=== PATIENT | female | born 1935 | race Caucasian/White ===

== ENCOUNTER 2022-09-06 13:38 | Inpatient (IN) | payer MEDICARE, MEDICAID, SELFPAY ==
[2022-09-06 13:39] VITALS: BP 144/94; PULSE 67; RESP 18; TEMP 36.6; O2SAT 93
[2022-09-06 13:51] VITALS: BMI 28.5
--- NOTE | 2022-09-06 14:01 | EX.ED.DYSGE1 ---
HPI History of Present Illness Chief Complaint: GI Bleed Informant: patient and family Onset/Context/Timing Onset: Today Narrative Narrative: Patient presents for evaluation of possible GI bleed. She reportedly had a very dark stool this morning. Last BM was 2 days ago and normal at that time per her report. She was recently seen at an emergency room in [place] with left groin pain. X-rays were unremarkable. She was placed on prednisone and Voltaren. She also takes aspirin daily. She states since arriving in the emergency room she started to get some slight periumbilical pain. She is unsure of her last colonoscopy but states its been more than 3 years. She states that she has never had an abnormal colonoscopy. [facility] Medical History Dyslipidemia Hypertension Hypothyroidism Home Medications Lovastatin [Mevacor] 40 mg PO DAILY 02/18/13 [History Last Taken 02/11/13] albuterol sulfate 90 mcg/actuation aerosol inhaler (Ventolin HFA) 1 - 2 puff inhalation Q4H PRN PRN Wheezing 02/18/13 [History Last Taken Unknown] amlodipine 2.5 mg tablet 5 mg PO DAILY 02/18/13 [History Last Taken 02/18/13] levothyroxine 25 mcg tablet (Levoxyl) 50 mcg PO DAILY 02/18/13 [History Last Taken 02/17/13 08:00] metoprolol tartrate 25 mg tablet 25 mg PO BID 02/18/13 [History Last Taken 02/17/13] aspirin 81 mg chewable tablet 1 tab PO DAILY 07/27/16 [History Last Taken Unknown] calcium carbonate 500 mg-vitamin D3 10 mcg (400 unit) chewable tablet (Calcium 500 + D) 1 tab PO DAILY 07/27/16 [History Last Taken Unknown] meclizine 12.5 mg tablet 12.5 mg PO 4X/DAY PRN PRN Dizziness 07/27/16 [History Last Taken Unknown] hydrocodone-acetaminophen 5-325mg 5mg-325mg 1 - 2 tab PO Q4H PRN PRN Pain ##14 07/28/16 [Rx Last Taken Unknown] Allergy/AdvReac Type Severity Reaction Status Date / Time Penicillins Allergy Hives Verified 09/06/22 13:42 Sulfa (Sulfonamide Allergy Hives Verified 09/06/22 13:42 Antibiotics) atorvastatin calcium AdvReac Unknown Verified 09/06/22 13:42 [From Lipitor] Social History Smoking Status: Never smoker ROS ROS ED Constitutional Constitutional ED: Denies chills or fever(s) Eyes Eyes: Denies change in vision ENT ENT ED: Denies rhinorrhea or sore throat Cardiovascular Cardiovascular: Denies chest pain or palpitations Respiratory/Chest Respiratory/Chest: Denies cough or dyspnea Gastrointestinal Gastrointestinal: Reports abdominal pain and melena; Denies diarrhea, nausea or vomiting Genitourinary Genitourinary ED: Denies dysuria Musculoskeletal Musculoskeletal: Denies back pain or extremity pain Integumentary Denies Abrasions or rash Neurologic Neurologic: Denies headache(s) or weakness Psychiatric Psychiatric: Denies anxiety or depression Allergic/Immunologic Allergic/Immunologic ED: Denies lip swelling or urticaria EXAM Physical Exam Const Vital Signs: 09/06/22 13:39 Temperature 97.8 F Temperature Source Temporal Pulse Rate 67 Respiratory Rate 18 Blood Pressure 144/94 H Blood Pressure Mean 110 Pulse Ox 93 Oxygen Delivery Method Room Air Positive well nourished and well developed General Appearance ED: well developed HEENT Reports normocephalic and head/scalp atraumatic Eyes PERRL and EOMs intact bilaterally Neck supple Chest Wall inspection of chest normal and palpation of chest normal Resp normal respiratory effort and clear to auscultation bilaterally Cardio regular rate and regular rhythm GI non-tender Auscultation: hypoactive bowel sounds Palpation: soft Extremity normal to inspection Neuro oriented x3 and no sensory deficits noted Sensorium / Orientation: alert Motor Exam: strength 5/5 throughout Psych mental status grossly normal Skin no rashes or lesions noted Discharge Plan Triage Chief Complaint: GI Bleed ED Provider: Annetta Barnhart Dx/Rx/DC Orders Prescriptions: No Action levothyroxine [Levoxyl] 25 MCG tablet 50 mcg PO DAILY metoprolol tartrate 25 MG tablet 25 mg PO BID Label Comments: 2 TABLETS WITH BREAKFAST, 1 TAB QHS amlodipine 2.5 MG tablet 5 mg PO DAILY albuterol sulfate [Ventolin HFA] 1 INHALER inhaler 1 - 2 puff inhalation Q4H PRN PRN (Reason: Wheezing) Lovastatin [Mevacor] 40 MG tablet 40 mg PO DAILY meclizine 12.5 MG tablet 12.5 mg PO 4X/DAY PRN PRN (Reason: Dizziness) aspirin 81 MG tablet,chewable 1 tab PO DAILY calcium carbonate-vitamin D3 [Calcium 500 + D] 1 EACH tablet,chewable 1 tab PO DAILY hydrocodone-acetaminophen 1 TABLET tablet 1 - 2 tab PO Q4H PRN PRN (Reason: Pain) Qty: 14 0RF Primary Care Provider: Fco Woods Referrals: Fco Woods MD [Primary Care Provider] -
[2022-09-06 14:21] LABS: Absolute Lymphocyte Count 2.13 X10^3/uL (0.83-4.51); Absolute Neutrophil Count 14.4 X10^3/uL (2.0-7.7); Basophil# 0.07 X10^3/uL; Basophil% 0.3 % (0-1); Eosinophil# 0.42 X10^3/uL; Eosinophils% 1.7 % (0-5); Hemoglobin 11.8 g/dL (12.0-15.0); Lymphocyte # 2.13 X10^3/ul (0.83-4.51); Lymphocyte % 8.7 % (19-41); Mean Corp Hgb Conc 31.9 g/dL (32-36); Mean Corpuscular Hgb 30.3 pg (27.0-32.0); Mean Corpuscular Volume 94.9 fL (81-99); Mean Platelet Vol. 12.2 fl (6.2-12.0); Monocyte# 6.94 X10^3/uL; Monocyte% 28.5 % (0-10); NRBC Flagged by Analyzer 0 % (0-5); Neutrophil # 14.42 X10^3/uL (2.7-7.7); Neutrophil % 59.2 % (47-70); POSITIVE DIFFERENTIAL YES; POSITIVE MORPHOLOGY YES; Platelet Count 217 K/mm3 (150-450); RBC Distribution Width CV 13.2 % (11.6-14.6); White Blood Count 24.4 K/mm3 (4.4-11.0)
[2022-09-06 14:23] LABS: Differential Indicated SCAN CRITERIA MET
[2022-09-06] MEDS: 0.9% Normal Saline 1,000 ML 150 ML IV ×2 (14:25→20:23)
[2022-09-06 14:38] LABS: AST(SGOT) 10 U/L (15-37); Alanine Aminotransfer ALT/SGPT 12 U/L (13-56); Albumin, Serum 3.8 g/dL (3.2-5.0); Alkaline Phosphatase 52 U/L (45-117); Anion Gap 4 (5-15); BUN 23 mg/dL (7-18); BUN/Creat Ratio 25.4 RATIO (10-20); Calcium,Total 9.9 mg/dL (8.5-10.1); Chloride 98 mmol/L (98-107); Creatinine, Serum 0.91 mg/dL (0.55-1.02); EST Glomerular Filtration Rate 62 mL/min (>60); Est Glom Filt Rate - Afr Amer 75 mL/min (>60); Estimated Creatinine Clearance 35.35 ml/min; Globulin 3.2 g/dL (2.2-4.2); Glucose 99 mg/dL (74-106); Potassium 3.4 mmol/L (3.5-5.1); Prothrombin Time (Protime)PT. 12.8 SECONDS (11.7-14.9); Sodium Level 135 mmol/L (136-145)
[2022-09-06 14:39] LABS: Partial Thromboplast Time 23.4 Seconds (24.1-36.2)
[2022-09-06 14:52] LABS: Differential Comment S
--- NOTE | 2022-09-06 16:04 | PCM.HP.STD ---
HPI - General General Date of Admission: 09/06/22 Date of Service: 09/06/22 Chief Complaint: melena HPI Narrative GA MAJOR, is a 87 F who presents with a one-time episode of large dark tarry stools. Did have some abdominal pain associated with that and some nausea. Many years ago, patient had GI bleed that was evaluated. The results of which that work-up they do not recall given the length of time since that occurred. [facility] Medical History Colitis Dyslipidemia Hemorrhoid Hypertension Hypothyroidism Home Medications Lovastatin [Mevacor] 40 mg PO QHS cholesterol 02/18/13 [History Last Taken 09/05/22] albuterol sulfate 90 mcg/actuation aerosol inhaler (Ventolin HFA) 1 - 2 puff inhalation Q4H PRN PRN Wheezing 02/18/13 [History Last Taken Unknown] amlodipine 2.5 mg tablet 5 mg PO DAILY heart 02/18/13 [History Last Taken 09/06/22] levothyroxine 25 mcg tablet (Levoxyl) 50 mcg PO DAILY thyroid 02/18/13 [History Last Taken 09/06/22] metoprolol tartrate 25 mg tablet 50 mg PO QHS BP 02/18/13 [History Last Taken 09/05/22] calcium carbonate 500 mg-vitamin D3 10 mcg (400 unit) chewable tablet (Calcium 500 + D) 1 tab PO DAILY supplement 07/27/16 [History Last Taken 09/06/22] acetaminophen 650 mg tablet,extended release 1,300 mg PO Q8H PRN Pain 09/06/22 [History Last Taken 09/06/22] aspirin 325 mg tablet 325 mg PO DAILY heart health 09/06/22 [History Last Taken 09/05/22] diclofenac sodium 75 mg tablet,delayed release 75 mg PO BID pain 09/06/22 [History Last Taken 09/05/22] docusate sodium 50 mg capsule 50 mg PO QHS stool softener 09/06/22 [History Last Taken 09/05/22] losartan 25 mg tablet 25 mg PO DAILY bp 09/06/22 [History Last Taken 09/06/22] metoprolol tartrate 25 mg tablet 100 mg PO DAILY bp 09/06/22 [History Last Taken 09/06/22] prednisone 20 mg tablet 20 mg PO DAILY pain 09/06/22 [History Last Taken 09/05/22] Allergy/AdvReac Type Severity Reaction Status Date / Time Penicillins Allergy Hives Verified 09/06/22 13:42 Sulfa (Sulfonamide Allergy Hives Verified 09/06/22 13:42 Antibiotics) atorvastatin calcium AdvReac Unknown Verified 09/06/22 13:42 [From Lipitor] Surgical History History of hysterectomy Social History Smoking Status: Never smoker Vital Signs Vital Signs Vital Signs: 09/06/22 13:39 Temperature 36.6 C Temperature Source Temporal Pulse Rate 67 Respiratory Rate 18 Blood Pressure 144/94 H Blood Pressure Mean 110 Pulse Ox 93 Oxygen Delivery Method Room Air Weight Weight: 73 kg Body Mass Index (BMI) 28.5 Physical Exam Const alert and no apparent distress Resp normal respiratory effort, no retractions, no use of accessory muscles and clear to auscultation bilaterally Cardio regular rate, regular rhythm, S1 normal heart sound and S2 normal heart sound GI normal to inspection, nondistended, normoactive bowel sounds, soft to palpation, non-tender and non-distended Extremity normal to inspection Results Lab / Micro Data Result Diagrams: 09/06/22 14:12 09/06/22 14:12 Labs: Laboratory Results - last 24 hr 09/06/22 14:12: WBC 24.4 H, RBC 3.90 L, Hgb 11.8 L, Hct 37.0, MCV 94.9, MCH 30.3, MCHC 31.9 L, RDW Std Deviation 46.0 H, RDW Coeff of Haresh 13.2, Plt Count 217, MPV 12.2 H, Immature Gran % (Auto) 1.600 H, Neut % (Auto) 59.2, Lymph % (Auto) 8.7 L, [place] % (Auto) 28.5 H, Eos % (Auto) 1.7, Baso % (Auto) 0.3, Absolute Neuts (auto) 14.4 H, Absolute Lymphs (auto) 2.13, Nucleated RBC % 0, Differential Comment S, Diff Path Review September foll 09/06/22 14:12: PT 12.8, INR 1.0, APTT 23.4 L 09/06/22 14:12: Sodium 135 L, Potassium 3.4 L, Chloride 98, Carbon Dioxide 33.0 H, Anion Gap 4 L, BUN 23 H, Creatinine 0.91, Estim Creat Clear Calc 35.35, Est GFR (MDRD) Af Amer 75, Est GFR (MDRD) Non-Af 62, BUN/Creatinine Ratio 25.4 H, Glucose 99, Calcium 9.9, Total Bilirubin 0.30, Direct Bilirubin 0.10, AST 10 L, ALT 12 L, Alkaline Phosphatase 52, Total Protein 7.0, Albumin 3.8, Globulin 3.2 Micro: Microbiology 09/06/22 14:12 Stool Stool Occult Blood (WINDY) - Final Occult Blood Positive Assessment & Plan Assessment/Plan (1) GI bleed: PLAN: Suspect upper source Start Protonix IV Consult gastroenterology, Dr. Snow was notified according to the emergency room physician. Hold aspirin and diclofenac Patient does have some abdominal pain but not currently. If does have recurrent abdominal pain, would recommend CT angiogram of the abdomen. PLAN: Plan VTE prophylaxis with SCDs CODE STATUS: Addressed with the patient. Patient wishes to be full code. Charges/Coding Visit Charges Inpatient E&M: 66288 Init Hosp L2
--- NOTE | 2022-09-06 16:33 | CON.PCM.GI_ITS ---
HPI Consult Data Date of Consult: 09/06/22 HPI Narrative Reason for Consultation: GI bleeding HPI Narrative: GA MAJOR, is a 87 F who presents for evaluation of possible GI bleed. She has a past medical of hypertension, hyperlipidemia, arthritis on diclofenac and prednisone. She reportedly had a very dark stool this morning.? Last BM was 2 days ago and normal at that time per her report.? She was recently seen at an emergency room in [place] with left groin pain.? X-rays were unremarkable.? She was placed on prednisone and Voltaren.? She also takes aspirin daily.? She states since arriving in the emergency room she started to get some slight periumbilical pain.? She is unsure of her last colonoscopy but states its been more than 3 years.? She states that she has never had an abnormal colonoscopy. I was consulted for GI bleed. Biochemical work-up in the ED does show white blood cell count of 24,000, hemoglobin 11.8, hematocrit 46%, platelet count of 217, increased BUN creatinine ratio of 23/0.9.. PFSH Medical History Colitis Dyslipidemia Hemorrhoid Hypertension Hypothyroidism Home Medications Lovastatin [Mevacor] 40 mg PO QHS cholesterol 02/18/13 [History Last Taken 09/05/22] albuterol sulfate 90 mcg/actuation aerosol inhaler (Ventolin HFA) 1 - 2 puff inhalation Q4H PRN PRN Wheezing 02/18/13 [History Last Taken Unknown] amlodipine 2.5 mg tablet 5 mg PO DAILY heart 02/18/13 [History Last Taken 09/06/22] levothyroxine 25 mcg tablet (Levoxyl) 50 mcg PO DAILY thyroid 02/18/13 [History Last Taken 09/06/22] metoprolol tartrate 25 mg tablet 50 mg PO QHS BP 02/18/13 [History Last Taken 09/05/22] calcium carbonate 500 mg-vitamin D3 10 mcg (400 unit) chewable tablet (Calcium 500 + D) 1 tab PO DAILY supplement 07/27/16 [History Last Taken 09/06/22] acetaminophen 650 mg tablet,extended release 1,300 mg PO Q8H PRN Pain 09/06/22 [History Last Taken 09/06/22] aspirin 325 mg tablet 325 mg PO DAILY heart health 09/06/22 [History Last Taken 09/05/22] diclofenac sodium 75 mg tablet,delayed release 75 mg PO BID pain 09/06/22 [History Last Taken 09/05/22] docusate sodium 50 mg capsule 50 mg PO QHS stool softener 09/06/22 [History Last Taken 09/05/22] losartan 25 mg tablet 25 mg PO DAILY bp 09/06/22 [History Last Taken 09/06/22] metoprolol tartrate 25 mg tablet 100 mg PO DAILY bp 09/06/22 [History Last Taken 09/06/22] prednisone 20 mg tablet 20 mg PO DAILY pain 09/06/22 [History Last Taken 09/05/22] Allergy/AdvReac Type Severity Reaction Status Date / Time Penicillins Allergy Hives Verified 09/06/22 13:42 Sulfa (Sulfonamide Allergy Hives Verified 09/06/22 13:42 Antibiotics) atorvastatin calcium AdvReac Unknown Verified 09/06/22 13:42 [From Lipitor] Surgical History History of hysterectomy Social History Smoking Status: Never smoker ROS Review of Systems ROS Unobtainable: other Constitutional Constitutional: Denies fatigue, fever(s), poor appetite, weight gain or weight loss ENT HEENT: Denies mouth lesions Cardiovascular Cardiovascular: Denies abdominal bloating, abdominal edema or abdominal pain Respiratory/Chest Respiratory/Chest: Denies change in mental status, change in phlegm color, chest congestion or chest tightness Gastrointestinal Gastrointestinal: Denies belching, bloating, change in bowel habits, change in stool character, chewing difficulty, coffee ground emesis, constipation, cramping, diarrhea, dyspepsia, dysphagia, early satiety, excessive flatus, fecal incontinence, heartburn, hematemesis, hematochezia, hemorrhoids, loose stools, melena, nausea, odynophagia, rectal bleeding, tenesmus, vomiting or weight changes Genitourinary Genitourinary: Denies abdominal discomfort, burning urination or itching Musculoskeletal Musculoskeletal: Reports as per HPI; Denies muscle weakness or myalgias Integumentary Integumentary: Denies jaundice Neurologic Neurologic: Denies lack of coordination or weakness Psychiatric Psychiatric: Denies confusion, depression, memory loss, mood swings, paranoia or suicidal ideation Endocrine Endocrinology: Denies systems reviewed and no addt'l complaints, except as do cumented Hematologic/Lymphatic Hematologic/Lymphatic: Denies anemia, easy bleeding, easy bruising or lymphadenopathy Allergic/Immunologic Allergic/Immunologic: Denies systems reviewed and no addt'l complaints, except as documented Physical Exam Const alert and no apparent distress Resp normal respiratory effort, no retractions, no use of accessory muscles and clear to auscultation bilaterally Cardio regular rate, regular rhythm, S1 normal heart sound and S2 normal heart sound GI normal to inspection, nondistended, normoactive bowel sounds, soft to palpation, non-tender and non-distended Extremity normal to inspection Lab / Micro Data Result Diagrams: 09/06/22 14:12 09/06/22 14:12 Labs: Laboratory Results - last 24 hr , Nucleated RBC % 0, Differential Comment S, Diff Path Review September09/06/22 14:12: PT 12.8, INR 1.0, APTT 23.4 L 09/06/22 14:12: Sodium 135 L, Potassium 3.4 L, Chloride 98, Carbon Dioxide 33.0 H, Anion Gap 4 L, BUN 23 H, Creatinine 0.91, Estim Creat Clear Calc 35.35, Est GFR (MDRD) Af Amer 75, Est GFR (MDRD) Non-Af 62, BUN/Creatinine Ratio 25.4 H, Glucose 99, Calcium 9.9, Total Bilirubin 0.30, Direct Bilirubin 0.10, AST 10 L, ALT 12 L, Alkaline Phosphatase 52, Total Protein 7.0, Albumin 3.8, Globulin 3.2 Micro: Microbiology 09/06/22 14:12 Stool Stool Occult Blood (WINDY) - Final Occult Blood Positive Assessment & Plan Assessment/Plan (1) GI bleed: PLAN: GI bleed : The differential diagnosis does include upper GI bleed and lower GI bleed. She is high risk for upper GI bleed secondary to full dose aspirin and diclofenac. She could also have a bleed anywhere in the GI tract secondary to her age and dual high-dose antiplatelet medicines and the use of prednisone therapy further increases her risk. She had a CT scan back in 2012 that showed dilated central intrahepatic biliary ducts as well as the common bile duct in the pancreatic bed. It also displayed circumferential wall thickening of the colon worse at the level of the transverse colon as well as circumferential wall thickening of the terminal ileum.? Recommend to follow H&H every 6 hours. Okay with her being on a PPI drip. DC NSAIDs. I would recommend CT scan abdomen pelvis secondary to a very high white blood cell count and her previous CT scan. Charges/Coding Visit Charges Inpatient E&M: 30088 Init Hosp L3
[2022-09-06 16:43] VITALS: BP 167/93; PULSE 66; RESP 18; TEMP 36.6; O2SAT 92
--- NOTE | 2022-09-06 17:00 | CT_ITS ---
INDICATION: GI bleed and history of colitis EXAMINATION: CT Abdomen And Pelvis W/ Contrast Injection TECHNIQUE: Helically acquired images were obtained of the abdomen and pelvis after IV contrast. A radiation dose optimization technique was used for this scan. IV Contrast dosage and agent: IV 100mL [id number] Oral contrast: None. COMPARISON: None. FINDINGS: Visualized lung bases: Unremarkable Liver: Unremarkable Gallbladder: Few small intraluminal stones seen. Spleen: Unremarkable Pancreas: Unremarkable Adrenal Glands: Unremarkable Kidneys: Scattered too small to characterize subcentimeter hypodensities bilaterally. Vasculature: Mild scattered aortoiliac atherosclerotic calcifications. GI Tract: Scattered diverticula throughout the colon without evidence of inflammation. Lymphadenopathy: None Peritoneum: No ascites. Bladder: Unremarkable Reproductive organs: Unremarkable Bones/Soft tissues: There are diffuse degenerative changes of the spine. Grade 1 anterolisthesis L4 on L5 and L5 on S1. CT/Abdomen/Pelvis W IV Cont ONLY IMPRESSION: No acute abnormalities in the abdomen or pelvis. Diverticulosis. Cholelithiasis. Grade 1 anterolisthesis L4 on L5 and L5 on S1. Electronically Signed: Wang Mace MD at 17:30 EDT ,
[2022-09-06 17:25] VITALS: BMI 28.9
--- NOTE | 2022-09-06 17:26 | CM.ED ---
Social Work SW met Face to Face with patient for initial transition planning/care coordination assessment. SW introduced self and role at [facility]. Patient lying in bed, alert and oriented. Patient willing to participate in assessment and is able to answer all questions appropriately. Patient's daughter Kisha also present and assisted in answering questions. Care providers, pharmacy, and demographics verified. Patient wishes to discharge back to daughterKisha's home and denies need for home health at this time. Patient states she has no further needs. SW to follow for discharge planning needs that may arise. PCP: Dr. Woods Specialists: None Preferred Pharmacy: [facility] ([place]) Insurance: My Care [facility] Prescription Benefit: Yes Living Will/HPOA: Paperwork copied and placed on patient's chart LNOK: Kisha Sanchez, Rere Crowe and Annetta Newton (patient's daughters) Living Arrangements: with daughter Kisha Sanchez at her home in [place] Transportation: daughter DME/HHC: shower chair, raised toilet seat, temp grab bar, walker, cane, wheelchair, lift chair, pulse ox and ramp at entrance of home Pt does not have home health or previous SNF. Pt's daughter inquired about address change for medicaid/medicare with [facility] due to mother living with her in [place] and being unable to live at [place] address currently, 800 number provided to report address changes to [facility]. Disposition Plan: Pt intends to return to daughter's home upon discharge. Terrie Ho BUSINESS DEVELOPMENT ASSISTANT, [employer]OL AND DIE ASSEMBLER
[2022-09-06 17:30] VITALS: BP 171/114; PULSE 70; RESP 18; TEMP 36.4; O2SAT 95
[2022-09-06 20:19] LABS: Absolute Neutrophil Count 11.4 X10^3/uL (2.0-7.7); Basophil# 0.06 X10^3/uL; Basophil% 0.3 % (0-1); Eosinophil# 0.09 X10^3/uL; Eosinophils% 0.5 % (0-5); Hematocrit 35.4 % (37-47); Hemoglobin 11.4 g/dL (12.0-15.0); Lymphocyte % 10.6 % (19-41); Mean Corp Hgb Conc 32.2 g/dL (32-36); Mean Corpuscular Hgb 30.4 pg (27.0-32.0); Mean Corpuscular Volume 94.4 fL (81-99); Mean Platelet Vol. 12.3 fl (6.2-12.0); Monocyte# 5.02 X10^3/uL; Monocyte% 26.7 % (0-10); NRBC Flagged by Analyzer 0 % (0-5); Neutrophil # 11.41 X10^3/uL (2.7-7.7); Neutrophil % 60.8 % (47-70); POSITIVE DIFFERENTIAL YES; Platelet Count 201 K/mm3 (150-450); RBC Distribution Width CV 13.3 % (11.6-14.6); Red Blood Count 3.75 M/mm3 (4.2-5.4); White Blood Count 18.8 K/mm3 (4.4-11.0)
[2022-09-06 20:33] VITALS: BP 149/98; PULSE 60; RESP 18; TEMP 36.6; O2SAT 94
[2022-09-06 20:39] LABS: Differential Indicated SCAN CRITERIA MET
[2022-09-06 20:41] LABS: Platelet Estimate ADEQUATE (ADEQ)
[2022-09-06 20:42] LABS: Anisocytosis RARE; Macrocytosis RARE; Red Cell Morphology N CHROM NORMAL (NORM C&C)
[2022-09-06 21:15] VITALS: BP 149/98; PULSE 60
[2022-09-06] MEDS: Metoprolol Tartrate 25 MG Tablet PO (21:15)
[2022-09-07 02:30] VITALS: BP 148/91; PULSE 65; RESP 16; TEMP 36.5; O2SAT 95
[2022-09-07] MEDS: 0.9% Normal Saline 1,000 ML 150 ML IV ×2 (03:06→09:15)
[2022-09-07 06:21] LABS: Absolute Lymphocyte Count 1.42 X10^3/uL (0.83-4.51); Absolute Neutrophil Count 6.4 X10^3/uL (2.0-7.7); Basophil# 0.03 X10^3/uL; Basophil% 0.3 % (0-1); Eosinophil# 0.13 X10^3/uL; Eosinophils% 1.2 % (0-5); Hematocrit 32.5 % (37-47); Hemoglobin 10.5 g/dL (12.0-15.0); Lymphocyte # 1.42 X10^3/ul (0.83-4.51); Lymphocyte % 12.6 % (19-41); Mean Corp Hgb Conc 32.3 g/dL (32-36); Mean Corpuscular Hgb 30.3 pg (27.0-32.0); Mean Corpuscular Volume 93.7 fL (81-99); Mean Platelet Vol. 12.2 fl (6.2-12.0); Monocyte# 3.12 X10^3/uL; Monocyte% 27.7 % (0-10); NRBC Flagged by Analyzer 0 % (0-5); Neutrophil # 6.44 X10^3/uL (2.7-7.7); Neutrophil % 57.1 % (47-70); POSITIVE DIFFERENTIAL YES; Platelet Count 168 K/mm3 (150-450); RBC Distribution Width CV 13.4 % (11.6-14.6); RBC Distribution Width SD 45.9 fl (35.1-43.9); Red Blood Count 3.47 M/mm3 (4.2-5.4); White Blood Count 11.3 K/mm3 (4.4-11.0)
[2022-09-07 06:29] LABS: Differential Indicated SCAN CRITERIA MET
[2022-09-07 07:10] LABS: Anion Gap 3 (5-15); BUN 13 mg/dL (7-18); BUN/Creat Ratio 18.4 RATIO (10-20); Calcium,Total 8.2 mg/dL (8.5-10.1); Chloride 106 mmol/L (98-107); Creatinine, Serum 0.71 mg/dL (0.55-1.02); EST Glomerular Filtration Rate 83 mL/min (>60); Est Glom Filt Rate - Afr Amer 101 mL/min (>60); Estimated Creatinine Clearance 32.17 ml/min; Glucose 83 mg/dL (74-106); Potassium 3.1 mmol/L (3.5-5.1); Sodium Level 138 mmol/L (136-145)
--- NOTE | 2022-09-07 07:44 | PN.HOSP_ITS ---
Reason for Visit Reason for Visit: Diagnoses Gastrointestinal hemorrhage, unspecified (09/06/22) Subjective Subjective No further melena. Objective Data Objective Data Vital Signs: Vital Signs Temp Pulse Resp BP Pulse Ox O2 Del Method 36.5 C L 65 16 148/91 H 95 Room Air 09/07/22 02:30 09/07/22 02:30 09/07/22 02:30 09/07/22 02:30 09/07/22 02:30 09/07/22 02:30 Oxygen Delivery Method Room Air Weight: 74.117 kg Body Mass Index (BMI) 28.9 Intake & Output: Intake and Output for Last 24 Hours 09/05/22 09/06/22 09/07/22 23:59 23:59 23:59 Intake Total 1005 / 1005 1000 / 1000 Balance 1005 / 1005 1000 / 1000 Lab / Micro Data Result Diagrams: 09/07/22 06:05 09/07/22 06:05 Labs: Laboratory Results - last 24 hr 09/06/22 14:12: WBC 24.4 H, RBC 3.90 L, Hgb 11.8 L, Hct 37.0, MCV 94.9, MCH 30.3, MCHC 31.9 L, RDW Std Deviation 46.0 H, RDW Coeff of Haresh 13.2, Plt Count 217, MPV 12.2 H, Immature Gran % (Auto) 1.600 H, Neut % (Auto) 59.2, Lymph % (Auto) 8.7 L, [place] % (Auto) 28.5 H, Eos % (Auto) 1.7, Baso % (Auto) 0.3, Absolute Neuts (auto) 14.4 H, Absolute Lymphs (auto) 2.13, Nucleated RBC % 0, Differential Comment S, Diff Path Review September09/06/22 14:12: PT 12.8, INR 1.0, APTT 23.4 L 09/06/22 14:12: Sodium 135 L, Potassium 3.4 L, Chloride 98, Carbon Dioxide 33.0 H, Anion Gap 4 L, BUN 23 H, Creatinine 0.91, Estim Creat Clear Calc 35.35, Est GFR (MDRD) Af Amer 75, Est GFR (MDRD) Non-Af 62, BUN/Creatinine Ratio 25.4 H, Glucose 99, Calcium 9.9, Total Bilirubin 0.30, Direct Bilirubin 0.10, AST 10 L, ALT 12 L, Alkaline Phosphatase 52, Total Protein 7.0, Albumin 3.8, Globulin 3.2 09/06/22 20:10: WBC 18.8 H, RBC 3.75 L, Hgb 11.4 L, Hct 35.4 L, MCV 94.4, MCH 30.4, MCHC 32.2, RDW Std Deviation 46.0 H, RDW Coeff of Haresh 13.3, Plt Count 201, MPV 12.3 H, Immature Gran % (Auto) 1.100 H, Neut % (Auto) 60.8, Lymph % (Auto) 10.6 L, [place] % (Auto) 26.7 H, Eos % (Auto) 0.5, Baso % (Auto) 0.3, Absolute Neuts (auto) 11.4 H, Absolute Lymphs (auto) 2.00, Nucleated RBC % 0, Differential Comment SEE COMMENT, Diff Path Review May foll, Platelet Estimate ADEQUATE, RBC Morphology N CHROM, Anisocytosis RARE, Macrocytosis RARE 09/07/22 06:05: WBC 11.3 H, RBC 3.47 L, Hgb 10.5 L, Hct 32.5 L, MCV 93.7, MCH 30.3, MCHC 32.3, RDW Std Deviation 45.9 H, RDW Coeff of Haresh 13.4, Plt Count 168, MPV 12.2 H, Immature Gran % (Auto) 1.100 H, Neut % (Auto) 57.1, Lymph % (Auto) 12.6 L, [place] % (Auto) 27.7 H, Eos % (Auto) 1.2, Baso % (Auto) 0.3, Absolute Neuts (auto) 6.4, Absolute Lymphs (auto) 1.42, Nucleated RBC % 0 09/07/22 06:05: Sodium 138, Potassium 3.1 L, Chloride 106, Carbon Dioxide 29.0, Anion Gap 3 L, BUN 13, Creatinine 0.71, Estim Creat Clear Calc 32.17, Est GFR (MDRD) Af Amer 101, Est GFR (MDRD) Non-Af 83, BUN/Creatinine Ratio 18.4, Glucose 83, Calcium 8.2 L Micro: Microbiology 09/06/22 14:12 Stool Stool Occult Blood (WINDY) - Final Occult Blood Positive Radiography Diagnostic Testing: Radiology Impression Abdomen/Pelvis CT 09/06/22 17:00 IMPRESSION: No acute abnormalities in the abdomen or pelvis. Diverticulosis. Cholelithiasis. Grade 1 anterolisthesis L4 on L5 and L5 on S1. Electronically Signed: Wang Mace MD at 17:30 EDT , Physical Exam Const alert and no apparent distress HEENT head/scalp atraumatic and moist oral mucous membranes Resp normal respiratory effort, no retractions, no use of accessory muscles and clear to auscultation bilaterally Cardio regular rate, regular rhythm, S1 normal heart sound and S2 normal heart sound GI normal to inspection, nondistended, normoactive bowel sounds and soft to palpation Assessment & Plan Assessment/Plan (1) GI bleed: PLAN: Suspect upper source PPI gtt Hold aspirin and diclofenac Patient does have some abdominal pain but not currently. If does have recurrent abdominal pain, would recommend CT angiogram of the abdomen. CT A/P was unremarkable for any intraabdominal process. (2) Leukocytosis: PLAN: may be reactive as improved today. PLAN: Plan VTE prophylaxis with SCDs CODE STATUS: Addressed with the patient. Patient wishes to be full code. Charges/Coding Visit Charges Inpatient E&M: 24806 Subs Hosp L2
[2022-09-07 08:20] VITALS: BP 142/80; PULSE 83; RESP 18; TEMP 36.6; O2SAT 93
[2022-09-07 08:26] VITALS: PULSE 83; RESP 18; O2SAT 93
[2022-09-07 09:17] VITALS: BP 174/95; PULSE 84
[2022-09-07] MEDS: amLODIPine 5 MG Tablet PO (09:17)
[2022-09-07] MEDS: Metoprolol Tartrate 50 MG Tablet PO (09:17)
[2022-09-07 09:36] VITALS: BP 174/95; PULSE 88; RESP 16; TEMP 36.4; O2SAT 94
[2022-09-07 10:39] LABS: Pathologist Review Reviewed
[2022-09-07 10:40] LABS: Pathologist Review Reviewed
--- NOTE | 2022-09-07 13:12 | PN_ITS ---
Subjective Subjective Patient does not have any abdominal pain at this time. She denies any nausea. She denies any chest pain or shortness of breath. She underwent CT scan abdomen pelvis yesterday. Objective Data Objective Data Vital Signs: Vital Signs Temp Pulse Resp BP Pulse Ox O2 Del Method 97.6 F L 88 16 174/95 H 94 Room Air 09/07/22 09:36 09/07/22 09:36 09/07/22 09:36 09/07/22 09:36 09/07/22 09:36 09/07/22 09:36 Oxygen Delivery Method Room Air Weight: 163 lb 6.4 oz Body Mass Index (BMI) 28.9 Intake & Output: Intake and Output for Last 24 Hours 09/05/22 09/06/22 09/07/22 23:59 23:59 23:59 Intake Total 1005 / 1005 2032.5 / 2032.5 Output Total 750 / 750 Balance 1005 / 1005 1282.5 / 1282.5 Lab / Micro Data Result Diagrams: 09/07/22 06:05 09/07/22 06:05 Labs: Laboratory Results - last 24 hr 09/06/22 14:12: WBC 24.4 H, RBC 3.90 L, Hgb 11.8 L, Hct 37.0, MCV 94.9, MCH 30.3, MCHC 31.9 L, RDW Std Deviation 46.0 H, RDW Coeff of Haresh 13.2, Plt Count 217, MPV 12.2 H, Immature Gran % (Auto) 1.600 H, Neut % (Auto) 59.2, Lymph % (Auto) 8.7 L, [place] % (Auto) 28.5 H, Eos % (Auto) 1.7, Baso % (Auto) 0.3, Absolute Neuts (auto) 14.4 H, Absolute Lymphs (auto) 2.13, Nucleated RBC % 0, Differential Comment S, Diff Path Review Reviewed 09/06/22 14:12: PT 12.8, INR 1.0, APTT 23.4 L 09/06/22 14:12: Sodium 135 L, Potassium 3.4 L, Chloride 98, Carbon Dioxide 33.0 H, Anion Gap 4 L, BUN 23 H, Creatinine 0.91, Estim Creat Clear Calc 35.35, Est GFR (MDRD) Af Amer 75, Est GFR (MDRD) Non-Af 62, BUN/Creatinine Ratio 25.4 H, Glucose 99, Calcium 9.9, Total Bilirubin 0.30, Direct Bilirubin 0.10, AST 10 L, ALT 12 L, Alkaline Phosphatase 52, Total Protein 7.0, Albumin 3.8, Globulin 3.2 09/06/22 20:10: WBC 18.8 H, RBC 3.75 L, Hgb 11.4 L, Hct 35.4 L, MCV 94.4, MCH 30.4, MCHC 32.2, RDW Std Deviation 46.0 H, RDW Coeff of Haresh 13.3, Plt Count 201, MPV 12.3 H, Immature Gran % (Auto) 1.100 H, Neut % (Auto) 60.8, Lymph % (Auto) 10.6 L, [place] % (Auto) 26.7 H, Eos % (Auto) 0.5, Baso % (Auto) 0.3, Absolute Neuts (auto) 11.4 H, Absolute Lymphs (auto) 2.00, Nucleated RBC % 0, Differential Comment SEE COMMENT, Diff Path Review Reviewed, Platelet Estimate ADEQUATE, RBC Morphology N CHROM, Anisocytosis RARE, Macrocytosis RARE 09/07/22 06:05: WBC 11.3 H, RBC 3.47 L, Hgb 10.5 L, Hct 32.5 L, MCV 93.7, MCH 30.3, MCHC 32.3, RDW Std Deviation 45.9 H, RDW Coeff of Haresh 13.4, Plt Count 168, MPV 12.2 H, Immature Gran % (Auto) 1.100 H, Neut % (Auto) 57.1, Lymph % (Auto) 12.6 L, [place] % (Auto) 27.7 H, Eos % (Auto) 1.2, Baso % (Auto) 0.3, Absolute Neuts (auto) 6.4, Absolute Lymphs (auto) 1.42, Nucleated RBC % 0 09/07/22 06:05: Sodium 138, Potassium 3.1 L, Chloride 106, Carbon Dioxide 29.0, Anion Gap 3 L, BUN 13, Creatinine 0.71, Estim Creat Clear Calc 32.17, Est GFR (MDRD) Af Amer 101, Est GFR (MDRD) Non-Af 83, BUN/Creatinine Ratio 18.4, Glucose 83, Calcium 8.2 L Micro: Microbiology 09/06/22 14:12 Stool Stool Occult Blood (WINDY) - Final Occult Blood Positive Radiography Diagnostic Testing: Radiology Impression Abdomen/Pelvis CT 09/06/22 17:00 IMPRESSION: No acute abnormalities in the abdomen or pelvis. Diverticulosis. Cholelithiasis. Grade 1 anterolisthesis L4 on L5 and L5 on S1. Electronically Signed: Wang Mace MD at 17:30 EDT , Physical Exam Const alert and no apparent distress HEENT head/scalp atraumatic and moist oral mucous membranes Resp normal respiratory effort, no retractions, no use of accessory muscles and clear to auscultation bilaterally Cardio regular rate, regular rhythm, S1 normal heart sound and S2 normal heart sound GI normal to inspection, nondistended, normoactive bowel sounds and soft to palpation Assessment & Plan Assessment/Plan (1) GI bleed: PLAN: GI bleed : CT scan abdomen pelvis did not show any acute abnormality. It actually looks a lot better than her previous CT scan. Her white blood cell count is going down appropriately. This likely a leukemoid reaction. Her hemoglobin has not dropped significantly. She continues on PPI drip. I am okay with giving her a full liquid diet to see how she does. If her hemoglobin continues to be stable then she should be able to be DC'd home on twice daily PPI therapy and Carafate 3 times a day for 4 weeks. If her hemoglobin does continue to drop that she will need an upper endoscopy. N.p.o. past midnight. Charges/Coding Visit Charges Inpatient E&M: 11870 Subs Hosp L3
[2022-09-07 14:26] VITALS: BP 129/90; PULSE 86; RESP 17; TEMP 36.5; O2SAT 94
--- NOTE | 2022-09-07 15:24 | PCM.DC ---
Discharge Instructions Diet Discharge Diet: Low fat / Low cholesterol Dressing / Incision Call your doctor if you observe: - (blood in stool. dark tarry stools. ) Follow Up Care Test Results: Test results from this visit will be discussed in further detail at your follow-up appointment, if applicable. Discharge Plan Admission Admit Date/Time: 09/06/22 15:58 Primary Reason for Your Visit: GI bleed. Attending Provider: Reid Rocha Primary Care Provider: Fco Woods Discharge Orders/Prescriptions Prescriptions: New sucralfate 1 gram Tablet 1 g PO TIDAC Qty: 90 0RF pantoprazole [Protonix] 40 mg tablet,delayed release (DR/EC) 40 mg PO BID Qty: 60 0RF Continued levothyroxine [Levoxyl] 25 MCG tablet 50 mcg PO DAILY metoprolol tartrate 25 MG tablet 50 mg PO QHS Label Comments: 2 TABLETS WITH BREAKFAST, 1 TAB QHS Rx Instructions: take 2 in am, and one with supper amlodipine 2.5 MG tablet 5 mg PO DAILY albuterol sulfate [Ventolin HFA] 1 INHALER inhaler 1 - 2 puff inhalation Q4H PRN PRN (Reason: Wheezing) Lovastatin [Mevacor] 40 MG tablet 40 mg PO QHS calcium carbonate-vitamin D3 [Calcium 500 + D] 1 EACH tablet,chewable 1 tab PO DAILY prednisone 20 mg tablet 20 mg PO DAILY docusate sodium 50 mg Capsule 50 mg PO QHS acetaminophen 650 mg Tablet Extended Release 1,300 mg PO Q8H PRN (Reason: Pain) losartan 25 mg tablet 25 mg PO DAILY Label Comments: Take 1 tablet by mouth once daily. Held diclofenac sodium 75 mg tablet,delayed release (DR/EC) 75 mg PO BID Hold Instructions: Resume on 09/11/22. Label Comments: Take 1 tablet by mouth 2 times daily. aspirin 325 mg Tablet 325 mg PO DAILY Hold Instructions: Resume on 09/11/22. Discontinued metoprolol tartrate 25 mg tablet 100 mg PO DAILY Label Comments: Take 2 tablets with breakfast, and 1 tablet at bedtime Referrals / Follow Up: Fco Woods MD [Primary Care Provider] - Within 2 Weeks [facility] [Provider Group] - Within 1 Month Disposition Disposition (needs filled in before D/C Order can be placed): Home, Self Care
[2022-09-07] MEDS: Sucralfate 1 GM Tablet PO (15:48)
[2022-09-07] MEDS: Potassium Chloride Oral Tablet 20 MEQ 40 MEQ PO (15:48)
[2022-09-07 16:16] LABS: Absolute Lymphocyte Count 1.15 X10^3/uL (0.83-4.51); Absolute Neutrophil Count 6.4 X10^3/uL (2.0-7.7); Basophil# 0.05 X10^3/uL; Basophil% 0.4 % (0-1); Eosinophil# 0.08 X10^3/uL; Eosinophils% 0.7 % (0-5); Hematocrit 35.5 % (37-47); Hemoglobin 11.2 g/dL (12.0-15.0); Lymphocyte # 1.15 X10^3/ul (0.83-4.51); Mean Corp Hgb Conc 31.5 g/dL (32-36); Mean Corpuscular Hgb 29.8 pg (27.0-32.0); Mean Corpuscular Volume 94.4 fL (81-99); Mean Platelet Vol. 12.6 fl (6.2-12.0); Monocyte# 3.69 X10^3/uL; Monocyte% 32.2 % (0-10); NRBC Flagged by Analyzer 0 % (0-5); Neutrophil # 6.37 X10^3/uL (2.7-7.7); Neutrophil % 55.7 % (47-70); POSITIVE DIFFERENTIAL YES; Platelet Count 178 K/mm3 (150-450); RBC Distribution Width CV 13.4 % (11.6-14.6); RBC Distribution Width SD 46.5 fl (35.1-43.9); Red Blood Count 3.76 M/mm3 (4.2-5.4); White Blood Count 11.5 K/mm3 (4.4-11.0)
[2022-09-07 16:18] LABS: Differential Indicated SCAN CRITERIA MET
[2022-09-07 16:52] LABS: Differential Comment SCANNED
--- NOTE | 2022-09-07 17:05 | DS.PCM_ITS ---
Providers Date of Admission: 09/06/22 Primary Care Physician: Dr. Fco Woods MD Consultations 09/06/22 17:32 Consult: Gastroenterology Routine Consulting Provider: [facility] Reason for Consult: GI bleed EMERGENT Consult: No MD Notified: Yes Date Notified: 09/06/22 Time Notified: 16:03 Method of Notification: ED Physician Initiated Reason For Visit: GI BLEED Diagnosis Discharge Diagnosis (1) GI bleed: Status: Acute Code(s): K92.2 - Gastrointestinal hemorrhage, unspecified Plan: Suspect upper source PPI gtt Hold aspirin and diclofenac Patient does have some abdominal pain but not currently. If does have recurrent abdominal pain, would recommend CT angiogram of the abdomen. CT A/P was unremarkable for any intraabdominal process. Plan VTE prophylaxis with SCDs CODE STATUS: Addressed with the patient. Patient wishes to be full code. Medications at Discharge Home Medications Lovastatin [Mevacor] 40 mg PO QHS cholesterol 02/18/13 albuterol sulfate 90 mcg/actuation aerosol inhaler (Ventolin HFA) 1 - 2 puff inhalation Q4H PRN PRN Wheezing 02/18/13 amlodipine 2.5 mg tablet 5 mg PO DAILY heart 02/18/13 levothyroxine 25 mcg tablet (Levoxyl) 50 mcg PO DAILY thyroid 02/18/13 metoprolol tartrate 25 mg tablet 50 mg PO QHS BP 02/18/13 calcium carbonate 500 mg-vitamin D3 10 mcg (400 unit) chewable tablet (Calcium 500 + D) 1 tab PO DAILY supplement 07/27/16 acetaminophen 650 mg tablet,extended release 1,300 mg PO Q8H PRN Pain 09/06/22 aspirin 325 mg tablet 325 mg PO DAILY heart health 09/06/22 diclofenac sodium 75 mg tablet,delayed release 75 mg PO BID pain 09/06/22 docusate sodium 50 mg capsule 50 mg PO QHS stool softener 09/06/22 losartan 25 mg tablet 25 mg PO DAILY bp 09/06/22 prednisone 20 mg tablet 20 mg PO DAILY pain 09/06/22 pantoprazole 40 mg tablet,delayed release (Protonix) 40 mg PO BID #60 tabs 09/07/22 sucralfate 1 gram tablet 1 g PO TIDAC #90 tabs 09/07/22 Hospital Course Operations None Procedures None Summary of Care Provided Minutes Spent on Discharge: 28 Weight / BMI Weight Weight: 74.117 kg Body Mass Index (BMI) 28.9 ABG / Lab / Microbiology Data Result Diagrams: 09/07/22 15:53 09/07/22 06:05 Laboratory: Laboratory Results - last 24 hr 09/06/22 14:12: Diff Path Review Reviewed 09/06/22 20:10: WBC 18.8 H, RBC 3.75 L, Hgb 11.4 L, Hct 35.4 L, MCV 94.4, MCH 30.4, MCHC 32.2, RDW Std Deviation 46.0 H, RDW Coeff of Haresh 13.3, Plt Count 201, MPV 12.3 H, Immature Gran % (Auto) 1.100 H, Neut % (Auto) 60.8, Lymph % (Auto) 10.6 L, [place] % (Auto) 26.7 H, Eos % (Auto) 0.5, Baso % (Auto) 0.3, Absolute Neuts (auto) 11.4 H, Absolute Lymphs (auto) 2.00, Nucleated RBC % 0, Differential Comment SEE COMMENT, Diff Path Review Reviewed, Platelet Estimate ADEQUATE, RBC Morphology N CHROM, Anisocytosis RARE, Macrocytosis RARE 09/07/22 06:05: WBC 11.3 H, RBC 3.47 L, Hgb 10.5 L, Hct 32.5 L, MCV 93.7, MCH 30.3, MCHC 32.3, RDW Std Deviation 45.9 H, RDW Coeff of Haresh 13.4, Plt Count 168, MPV 12.2 H, Immature Gran % (Auto) 1.100 H, Neut % (Auto) 57.1, Lymph % (Auto) 12.6 L, [place] % (Auto) 27.7 H, Eos % (Auto) 1.2, Baso % (Auto) 0.3, Absolute Neuts (auto) 6.4, Absolute Lymphs (auto) 1.42, Nucleated RBC % 0 09/07/22 06:05: Sodium 138, Potassium 3.1 L, Chloride 106, Carbon Dioxide 29.0, Anion Gap 3 L, BUN 13, Creatinine 0.71, Estim Creat Clear Calc 32.17, Est GFR (MDRD) Af Amer 101, Est GFR (MDRD) Non-Af 83, BUN/Creatinine Ratio 18.4, Glucose 83, Calcium 8.2 L 09/07/22 15:53: WBC 11.5 H, RBC 3.76 L, Hgb 11.2 L, Hct 35.5 L, MCV 94.4, MCH 29.8, MCHC 31.5 L, RDW Std Deviation 46.5 H, RDW Coeff of Haresh 13.4, Plt Count 178, MPV 12.6 H, Immature Gran % (Auto) 1.000 H, Neut % (Auto) 55.7, Lymph % (Auto) 10.0 L, [place] % (Auto) 32.2 H, Eos % (Auto) 0.7, Baso % (Auto) 0.4, Absolute Neuts (auto) 6.4, Absolute Lymphs (auto) 1.15, Nucleated RBC % 0, Differential Comment SCANNED, Diff Path Review September Microbiology: Microbiology 09/06/22 14:12 Stool Stool Occult Blood (WINDY) - Final Occult Blood Positive Radiography Diagnostic Testing: Radiology Impression Abdomen/Pelvis CT 09/06/22 17:00 IMPRESSION: No acute abnormalities in the abdomen or pelvis. Diverticulosis. Cholelithiasis. Grade 1 anterolisthesis L4 on L5 and L5 on S1. Electronically Signed: Wang Mace MD at 17:30 EDT , D/C Instructions Discharge Diet: Low fat / Low cholesterol Call your doctor if you observe: - (blood in stool. dark tarry stools. ) Meaningful Use Info Meaningful Use Diagnoses (Choose all that apply): None applicable Discharge Plan Admission Admit Date/Time: 09/06/22 15:58 Primary Reason for Your Visit: GI bleed. Attending Provider: Reid Rocha Primary Care Provider: Fco Woods Discharge Orders/Prescriptions Prescriptions: New sucralfate 1 gram Tablet 1 g PO TIDAC Qty: 90 0RF pantoprazole [Protonix] 40 mg tablet,delayed release (DR/EC) 40 mg PO BID Qty: 60 0RF Continued levothyroxine [Levoxyl] 25 MCG tablet 50 mcg PO DAILY metoprolol tartrate 25 MG tablet 50 mg PO QHS Label Comments: 2 TABLETS WITH BREAKFAST, 1 TAB QHS Rx Instructions: take 2 in am, and one with supper amlodipine 2.5 MG tablet 5 mg PO DAILY albuterol sulfate [Ventolin HFA] 1 INHALER inhaler 1 - 2 puff inhalation Q4H PRN PRN (Reason: Wheezing) Lovastatin [Mevacor] 40 MG tablet 40 mg PO QHS calcium carbonate-vitamin D3 [Calcium 500 + D] 1 EACH tablet,chewable 1 tab PO DAILY prednisone 20 mg tablet 20 mg PO DAILY docusate sodium 50 mg Capsule 50 mg PO QHS acetaminophen 650 mg Tablet Extended Release 1,300 mg PO Q8H PRN (Reason: Pain) losartan 25 mg tablet 25 mg PO DAILY Label Comments: Take 1 tablet by mouth once daily. Held diclofenac sodium 75 mg tablet,delayed release (DR/EC) 75 mg PO BID Hold Instructions: Resume on 09/11/22. Label Comments: Take 1 tablet by mouth 2 times daily. aspirin 325 mg Tablet 325 mg PO DAILY Hold Instructions: Resume on 09/11/22. Discontinued metoprolol tartrate 25 mg tablet 100 mg PO DAILY Label Comments: Take 2 tablets with breakfast, and 1 tablet at bedtime Referrals / Follow Up: [facility] [Provider Group] - Within 1 Month Fco Woods MD [Primary Care Provider] - Within 2 Weeks Disposition Disposition (needs filled in before D/C Order can be placed): Home, Self Care Charges/Coding Visit Charges Inpatient E&M: 33533 Disch Hosp
[2022-09-08 12:15] LABS: Pathologist Review Reviewed
== END 2022-09-07 19:04 | disposition home or self-care (01) | DRG 379 ==
LOC: ED 14:13 → MS3 15:35
PROVIDERS: Emergency Provider Emergency Medicine; PCP Family Medicine
DX: K92.2 Gastrointestinal hemorrhage, unspecified (principal); D72.823 Leukemoid reaction; E78.5 Hyperlipidemia, unspecified; I10 Essential (primary) hypertension; E03.9 Hypothyroidism, unspecified; Z79.82 Long term (current) use of aspirin; Z79.1 Long term (current) use of non-steroidal anti-inflammatories (NSAID); Z79.52 Long term (current) use of systemic steroids
CPT/HCPCS: 36415; 74177; 80048; 80076; 82274; 85025; 85610; 85730; 99285; J7030; Q9967; A4216